=== PATIENT | female | born 1990 | race Caucasian/White ===

== ENCOUNTER 2016-08-17 11:35 | Emergency (ER) | payer MEDICAID ==
[2016-08-17] MEDS ORDERED: ONDANSETRON DISINTEGRATING 4 MG TAB PO ONE (11:42)
[2016-08-17] MEDS ORDERED: NS 1,000 ML IV ONE ×2 (11:48→12:50)
--- NOTE | 2016-08-17 12:18 | UCPHY ---
H & P Time Seen by Provider: 08/17/16 11:57 Patient Type: Established HPI/ROS: This patient presents with a chief complaint of nausea, vomiting, diarrhea, cough and fever all of which began 2 days ago. She estimates that in the last 12-18 hours he has vomited 2 or 3 times and has had 15 or more episodes of diarrhea neither which contained blood. She is had a subjective fever with chills and also abdominal pain which she localizes to the left lower abdomen. She says that her urine has been malodorous but there has been no actual dysuria , frequency or hematuria. The cough also began approximately 2 days ago and is associated with some sore throat and some congestion but no ear pain. She describes headache and generalized myalgias as well as fatigue and malaise. She denies any chest pain or shortness of breath. She has been associated with 2 children both of whom had diarrhea but with no diarrhea or fever these children both recovered within 24 hours. Her illness began shortly after theirs. REVIEW OF SYSTEMS: Constitutional: Subjective fever, malaise, fatigue, feels dehydrated Eyes: No complaints ENT: Sore throat, nasal congestion, no ear pain Respiratory: Cough, no shortness of breath Cardiac: No chest pain, Gastrointestinal: See above Genitourinary: See above Musculoskeletal: Generalized myalgias Skin: No rash Neurological: Headache, lightheadedness Smoking Status: Current every day smoker Physical Exam: GENERAL: Well-appearing, well-nourished and in no acute distress. HEAD: Atraumatic, normocephalic. EYES: Pupils equal round and reactive to light, extraocular movements intact, sclera anicteric, conjunctiva are normal. ENT: TMs normal, nares patent, oropharynx clear without exudates. Moist mucous membranes. NECK: Normal range of motion, supple without lymphadenopathy or JVD. Nontender LUNGS: Breath sounds clear to auscultation bilaterally and equal. No wheezes rales or rhonchi. HEART: Regular rate and rhythm without murmurs, rubs or gallops. ABDOMEN: No distention, bowel sounds normally active, tenderness without guarding or rebound in the left upper and left lower quadrants. EXTREMITIES: Normal range of motion, . NEUROLOGICAL: Cranial nerves II through XII grossly intact. Normal speech, normal gait. PSYCH: Normal mood, normal affect. SKIN: Warm, dry, normal turgor, no visible rashes or lesions. Back: The entire left flank is tender especially in the left CVA area. Constitutional: Initial Vital Signs Temperature (C) 36.4 C 08/17/16 11:45 Heart Rate 119 H 08/17/16 11:45 Respiratory Rate 18 08/17/16 11:45 Blood Pressure 111/76 08/17/16 11:45 O2 Sat (%) 96 08/17/16 11:45 O2 Delivery Mode Room Air Allergies/Adverse Reactions: No Known Allergies Allergy (Verified 08/17/16 11:47) Home Medications: Medication Instructions Recorded No Medications [NO HOME 1 ea [facility] [place] 10/22/11 MEDICATIONS] Ondansetron Odt [Zofran Odt] 4 mg PO Q4PRN PRN #4 tab 08/17/16 Medical Decision Making ED Course/Re-evaluation: The patient was hydrated with 2 L of normal saline. She was given 4 mg of Zofran 0 DT. The patient continued to experience nausea although she did not vomit so a 4 mg of Zofran was given IV. Nausea continued and she was then given 10 mg of Reglan intravenously. After the Reglan she developed what seems to be akathisia and consequently was given 25 mg of Benadryl intravenously and for her pain she was given 30 mg of Toradol intravenously. She also received 1 g of Rocephin intravenously and currently she is feeling much better. I have encouraged her to return tomorrow for recheck and IV antibiotics. Differential Diagnosis: I am concerned that this patient in fact has pyelonephritis based on her urinalysis her left-sided CVA tenderness in her left-sided abdominal tenderness. This very well could cause her fever and vomiting but does not account for the diarrhea but this has been less of a problem and she has had no diarrhea since she arrived here. Initially I thought this would be a simple gastroenteritis but currently think that this is unlikely. There is nothing to suggest intra-abdominal pathology such as appendicitis, gallbladder disease, PID , bowel obstruction or bowel perforation. - Data Points Laboratory Results: Laboratory Results 08/17/16 11:50 08/17/16 11:50 08/17/16 08/17/16 08/17/16 11:58 11:55 11:50 WBC 6.94 10^3/uL (3.80-9.50) RBC 5.78 H 10^6/uL (4.18-5.33) Hgb 17.6 H g/dL (12.6-16.3) Hct 51.2 H % (38.0-47.0) MCV 88.6 fL (81.5-99.8) MCH 30.4 pg (27.9-34.1) MCHC 34.4 g/dL (32.4-36.7) RDW 12.4 % (11.5-15.2) Plt Count 304 10^3/uL (150-400) MPV 9.5 fL (8.7-11.7) Neut % (Auto) 74.0 % (39.3-74.2) Lymph % (Auto) 13.5 L % (15.0-45.0) [place] % (Auto) 10.2 % (4.5-13.0) Eos % (Auto) 1.3 % (0.6-7.6) Baso % (Auto) 0.6 % (0.3-1.7) Nucleat RBC Rel Count 0.0 % (0.0-0.2) Absolute Neuts (auto) 5.13 10^3/uL (1.70-6.50) Absolute Lymphs (auto) 0.94 L 10^3/uL (1.00-3.00) Absolute Monos (auto) 0.71 10^3/uL (0.30-0.80) Absolute Eos (auto) 0.09 10^3/uL (0.03-0.40) Absolute Basos (auto) 0.04 10^3/uL (0.02-0.10) Absolute Nucleated RBC 0.00 10^3/uL (0-0.01) Immature Gran % 0.4 % (0.0-1.1) Immature Gran # 0.03 10^3/uL (0.00-0.10) Sodium 142 mEq/L (134-144) Potassium 3.7 mEq/L (3.5-5.2) Chloride 106 mEq/L (97-110) Carbon Dioxide 18 L mEq/l (22-31) Anion Gap 18 mEq/L (8-16) BUN 10 mg/dL (7-23) Creatinine 0.7 mg/dL (0.6-1.0) Estimated GFR > 60 Glucose 97 mg/dL (70-100) Calcium 9.3 mg/dL (8.5-10.4) Total Bilirubin 0.7 mg/dL (0.1-1.4) AST 20 IU/L (14-46) ALT 28 IU/L (9-52) Alkaline Phosphatase 122 IU/L (38-126) Total Protein 8.4 H g/dL (6.3-8.2) Albumin 4.4 g/dL (3.5-5.0) Urine Color YELLOW Urine Appearance CLEAR Urine pH 6.0 (5.0-7.5) Ur Specific [place] 1.025 (1.002-1.030) Urine Protein TRACE H (NEGATIVE) Urine Ketones NEGATIVE (NEGATIVE) Urine Blood 3+ H (NEGATIVE) Urine Nitrate POSITIVE H (NEGATIVE) Urine Bilirubin NEGATIVE (NEGATIVE) Urine Urobilinogen 0.2 EU (0.2-1.0) Ur Leukocyte Esterase NEGATIVE (NEGATIVE) Urine RBC 3-5 H /hpf (0-3) Urine WBC 5-10 H /hpf (0-3) Ur Epithelial Cells 2+ H /lpf (NONE-1+) Urine Bacteria 3+ H /hpf (NONE SEEN) Urine Mucus TRACE /lpf (NONE-1+) Urine Glucose NEGATIVE (NEGATIVE) Urine Test NEGATIVE Influenza Typ A,B (DFA) NEGATIVE FOR FLU (NEGATIVE) Medications Given: Discontinued Medications Sodium Chloride (Ns) 1,000 mls @ 0 mls/hr IV EDNOW ONE PRN Reason: As Directed Stop: 08/17/16 11:49 Last Admin: 08/17/16 12:00 Dose: 1,000 mls Sodium Chloride (Ns) 1,000 mls @ 0 mls/hr IV ONCE ONE PRN Reason: Wide Open Stop: 08/17/16 12:51 Last Admin: 08/17/16 12:50 Dose: 1,000 mls Ibuprofen (Motrin) 600 mg PO EDNOW ONE Stop: 08/17/16 13:40 Last Admin: 08/17/16 14:22 Dose: Not Given Metoclopramide HCl (Reglan Injection) 10 mg IVP EDNOW ONE Stop: 08/17/16 14:24 Last Admin: 08/17/16 14:37 Dose: 10 mg Ondansetron HCl (Zofran Odt) 4 mg PO EDNOW ONE Stop: 08/17/16 11:43 Last Admin: 08/17/16 11:45 Dose: 4 mg Ondansetron HCl (Zofran) 4 mg IVP EDNOW ONE Stop: 08/17/16 13:44 Last Admin: 08/17/16 13:44 Dose: 4 mg Departure - Departure Disposition: Home, Routine, Self-Care Clinical Impression: Acute pyelonephritis Condition: Good Instructions: Kidney Infection (ED) Additional Instructions: Please return tomorrow for repeat evaluation and IV antibiotics. If you begin vomiting during the night and cannot keep fluids down you should go to the emergency department at [facility]. Your urine culture will be available in 2-3 days which may or may not secure the diagnosis of kidney infection. Do not eat anything for 6-8 hours and then only if you have no nausea and have had no further vomiting. Do try to keep herself hydrated with small volumes of liquids frequently. Adult Pain & Fever Control: We recommend Acetaminophen (Tylenol) and Ibuprofen (Motrin, Advil) for pain and fever control. When fever is high or pain severe, both drugs can be used at the same time, but at different intervals. Please note the time differences. Your dose is: Acetaminophen [650]mg every 4 to 6 hours ibuprofen [600]mg every [6] hours with food OR naproxen Sodium (Aleve) [440]mg every 12 hours. Note: do not take Acetaminophen with Hydrocodone (Vicodin, Lortab) or Oxycodone (Percocet). These medications also contain Acetaminophen. No more than 3000 mg of Acetaminophen should be taken in 24 hours (for an adult) . The maximal dose of ibuprofen that it is safe in a 24-hour period is 2400 mg. You may take 400 mg every 4 hours, 600 mg every 6 hours or 800 mg every 8 hours safely. Prescriptions: Ondansetron Odt [Zofran Odt] 4 mg PO Q4PRN PRN #4 tab PRN Reason: For Nausea & Vomiting - PQRS PQRS Measurement: Not applicable
[2016-08-17 12:23] LABS: COLOR YELLOW; LEUKOCYTE ESTERASE,URINE NEGATIVE (NEGATIVE); NITRITE,URINE POSITIVE (NEGATIVE)
[2016-08-17 12:33] LABS: % IMMATURE GRANULYOCYTES 0.4 % (0.0-1.1); ABSOLUTE IMMATURE GRANULOCYTES 0.03 10^3/uL (0.00-0.10); ADD DIFF? NO; ADD MORPH? NO; ADD SCAN? NO; ATYPICAL LYMPHOCYTE FLAG 50 (0-99); FRAGMENT RBC FLAG 0 (0-99); HEMATOCRIT 51.2 % (38.0-47.0); HEMOGLOBIN 17.6 g/dL (12.6-16.3); LEFT SHIFT FLG 0 (0-99); LIPEMIA HEMOLYSIS FLAG 90 (0-99); MEAN CELL HEMOGLOBIN 30.4 pg (27.9-34.1); MEAN CELL HEMOGLOBIN CONCENTR. 34.4 g/dL (32.4-36.7); MEAN CELL VOLUME 88.6 fL (81.5-99.8); MEAN PLATELET VOLUME 9.5 fL (8.7-11.7); PLATELET CLUMPS FLAG 0 (0-99); PLATELET COUNT 304 10^3/uL (150-400); RED BLOOD CELL COUNT 5.78 10^6/uL (4.18-5.33); RED CELL DISTRIBUTION WIDTH 12.4 % (11.5-15.2)
[2016-08-17 12:39] LABS: ALANINE AMINOTRANSFERASE 28 IU/L (9-52); ALBUMIN 4.4 g/dL (3.5-5.0); ALKALINE PHOSPHATASE 122 IU/L (38-126); ANION GAP 18 mEq/L (8-16); ASPARTATE AMINOTRANSFERASE 20 IU/L (14-46); BILIRUBIN,TOTAL 0.7 mg/dL (0.1-1.4); CALCIUM 9.3 mg/dL (8.5-10.4); CARBON DIOXIDE 18 mEq/l (22-31); CHLORIDE 106 mEq/L (97-110); CREATININE 0.7 mg/dL (0.6-1.0); GLOMERULAR FILTRATION RATE > 60; GLUCOSE 97 mg/dL (70-100); POTASSIUM 3.7 mEq/L (3.5-5.2); SODIUM 142 mEq/L (134-144); TOTAL PROTEIN 8.4 g/dL (6.3-8.2)
[2016-08-17 12:45] LABS: BACTERIA 3+ /hpf (NONE SEEN); MUCUS TRACE /lpf (NONE-1+)
[2016-08-17] MEDS ORDERED: IBUPROFEN 200 MG TAB PO ONE ×2 (13:39)
[2016-08-17] MEDS ORDERED: ONDANSETRON 4 MG/2 ML VIAL ONE (13:41)
[2016-08-17] MEDS ORDERED: ONDANSETRON 4 MG/2 ML VIAL IVP ONE (13:43)
[2016-08-17] MEDS ORDERED: METOCLOPRAMIDE 10 MG/2 ML VIAL IVP ONE (14:23)
[2016-08-17 14:38] VITALS: RESP 16
[2016-08-17] MEDS ORDERED: NS 100 ML BAG (MINI-BAG) IV ONE (14:47)
[2016-08-17] MEDS ORDERED: KETOROLAC 30 MG/1 ML SDV IVP ONE (15:01)
[2016-08-17 15:52] VITALS: BP 101/52; PULSE 109; TEMP 99; O2SAT 97
== END 2016-08-17 15:35 | disposition home or self-care (01) ==
LOC: CED 11:35
DX: N10 Acute pyelonephritis (principal); F17.200 Nicotine dependence, unspecified, uncomplicated
CPT/HCPCS: 80053-PO; 81003-PO; 81015-PO; 81025-PO; 85025-PO; 87400-PO; 96361-PO; 96365-PO; 96375-PO; G0463-PO; J0696; J1200; J1885; J2405; J2765

== ENCOUNTER 2016-12-26 13:14 | Emergency (ER) | payer MEDICAID ==
[2016-12-26] MEDS ORDERED: ACETAMINOPHEN 325 MG TAB PO ONE (14:25)
[2016-12-26] MEDS ORDERED: IOPAMIDOL (ISOVUE-300) 100 ML BTL ONE (14:40)
[2016-12-26] MEDS ORDERED: HYDROCODONE/APAP 5/325 TAB PO ONE (15:00)
[2016-12-26] MEDS ORDERED: NS 1,000 ML IV ONE (15:01)
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
[2016-12-26 15:49] VITALS: BP 110/66; PULSE 97; RESP 20; TEMP 98.4; O2SAT 92
== END 2016-12-26 16:03 | disposition home or self-care (01) ==
LOC: CED 13:14
DX: S00.432A Contusion of left ear, initial encounter (principal); S00.83XA Contusion of other part of head, initial encounter; F17.200 Nicotine dependence, unspecified, uncomplicated; Y08.89XA Assault by other specified means, initial encounter
CPT/HCPCS: 70486-PO; 74177-PO; 81025-PO; Q9967

== ENCOUNTER 2017-03-29 21:23 | Emergency (ER) | payer MEDICAID ==
[2017-03-29] MEDS ORDERED: IBUPROFEN 600 MG TAB PO ONE (21:40)
[2017-03-29 21:44] VITALS: RESP 18; TEMP 97.9; O2SAT 97
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
[2017-03-29 22:35] VITALS: BP 109/66; PULSE 91
== END 2017-03-29 22:37 | disposition home or self-care (01) ==
LOC: CED 21:23
DX: S62.316A Displaced fracture of base of fifth metacarpal bone, right hand, initial encounter for closed fracture (principal); W51.XXXA Accidental striking against or bumped into by another person, initial encounter; Y92.009 Unspecified place in unspecified non-institutional (private) residence as the place of occurrence of the external cause; F17.200 Nicotine dependence, unspecified, uncomplicated
CPT/HCPCS: 73130-PO

== ENCOUNTER 2017-04-25 10:34 | Emergency (ER) | payer MEDICAID ==
[2017-04-25] MEDS ORDERED: NS 1,000 ML IV ONE (11:00)
--- NOTE | 2017-04-25 11:09 | EDPHY ---
H & P Stated Complaint: LUQ abdominal pain,blood in stool,diarrhea for 2 days Time Seen by Provider: 04/25/17 10:40 HPI/ROS: This patient complains of abdominal pain. She explains that yesterday around mid day she noticed a sharp cramp in the left upper quadrant of her belly that resolved after about 10 minutes. This morning she complains of left lower quadrant pain of moderate intensity achy in nature. She describes associated loose stools over the past 2 days and notes this morning having bright red blood per rectum associated with her loose stool. On a 2nd bowel movement the blood was slightly darker in appearance in the bowl. She has nausea as well but no vomiting. She reports anorexia this morning. She reports associated nasal congestion over 2 days, myalgias, subjective fevers and fatigue. She notes no exacerbating or alleviating factors for her symptoms. Her mother drove her here by private vehicle for further evaluation this morning. ROS: No high fevers or chills. No other constitutional symptoms besides what is mentioned in HPI HEENT: Mild sore throat for a week that is improving. No ear pain. Nasal congestion as above. No sinus pain. Neuro: No headache. No focal numbness tingling weakness 9 pulmonary: She reports a mild cough for a few days with occasional wheezing. Cardiovascular: No chest pain. No heart palpitations. No lightheadedness. GI: As per HPI. : She reports darker urine than usual and some dysuria over the past week. She has not noticed any flank pain. No vaginal discharge. Last menstrual. Was normal timing 1 month ago that she typically has irregular menses since having her IUD. Integumentary: No rash or pallor. Endocrine: No complaints Review of symptoms is otherwise negative. Source: Patient Exam Limitations: No limitations - Personal History Current Tetanus Diphtheria and Acellular Pertussis (TDAP): Yes Tetanus Vaccine Date: unsure - Medical/Surgical History Hx Asthma: No Hx Chronic Respiratory Disease: No Hx Diabetes: No Hx Cardiac Disease: No Hx Renal Disease: No Hx Cirrhosis: No Hx Alcoholism: No Hx HIV/AIDS: No Hx Splenectomy or Spleen Trauma: No Other PMH: UTI's, fx right hand - Social History Smoking Status: Current every day smoker (For cigarettes a day on average.) Alcohol Use: Occasionally Drug Use: None Additional Social History: Patient feels safe in her home situation. She is accompanied by her mother and her child. - Physical Exam Exam: General Appearance: Alert, no distress. Eyes: Pupils equal and round no pallor or injection. ENT, Mouth: Mucous membranes moist. Ears: Clear bilaterally oropharynx: Clear with no erythema exudates or dysphonia. Respiratory: There are no retractions, lungs are clear to auscultation. She has occasional cough appreciate no wheezing or rales. Cardiovascular: Regular rate and rhythm. No murmur gallop or rub Gastrointestinal: Normoactive to hypoactive bowel sounds with left lower quadrant tenderness with no guarding or rebound. Back: Left CVA tenderness-mild Rectal exam performed with female nurse (Ashlee) in the room- no external hemorrhoids or external lesions. Mild tenderness on exam with tight sphincter tone. No significant blood on the glove but there is a streak of bright red consistent with blood. This is Hemoccult positive on testing. Neurological: GCS of 15 Skin: Warm and dry, no rashes. Musculoskeletal: Neck is supple nontender. Extremities are symmetrical, full range of motion. Psychiatric: Patient with anxious affect. She maintains logical thought content DIFFERENTIAL DIAGNOSIS: After history and physical exam differential diagnosis was considered for viral gastroenteritis, bacterial or parasitic dysentery, diverticulitis, pyelonephritis, colon polyp, colon cancer, ectopic , bronchitis, URI with cough Constitutional: Initial Vital Signs Temperature (C) 36.6 C 04/25/17 10:49 Heart Rate 102 H 04/25/17 10:49 Respiratory Rate 16 04/25/17 10:49 Blood Pressure 122/94 H 04/25/17 10:49 O2 Sat (%) 94 04/25/17 10:49 O2 Delivery Mode Room Air Allergies/Adverse Reactions: No Known Allergies Allergy (Verified 04/25/17 10:48) Home Medications: Medication Instructions Recorded No Medications [NO HOME 1 ea [facility] [place] 10/22/11 MEDICATIONS] HYOSCYAMINE SULFATE [LEVSIN-SL] 0.125 - 0.25 mg SL Q6 PRN #20 04/25/17 tab.subl Ondansetron Odt [Zofran Odt] 4 - 8 mg PO Q4PRN PRN #4 tab 04/25/17 Medical Decision Making ED Course/Re-evaluation: IV, normal saline bolus Zofran IV with some relief of nausea Levsin p.o. with decrease in cramping Ativan for anxiety with relief. Patient was unable to provide a stool sample while here. Discussion: Patient with hematochezia, nausea and some mild cramping discomfort with no evidence of hemorrhagic shop, anemia orthostasis. I doubt bacterial or parasitic dysentery given lack of fever, lack of white blood cell count and lack of risk factors for this diseases. I think it is likely that the patient has a viral gastroenteritis with internal hemorrhoid verses the lower colonic polyp causing bleeding. However, I explained the patient that other diagnoses cannot be ruled out without further workup as an outpatient. I counseled patient regarding her diagnosis and the need to follow up with Gastroenterology for further evaluation including likely colonoscopy. She is given strict precautions to return emergency department should she have any significant ongoing symptoms or or recurrence of symptoms. - Data Points Laboratory Results: Laboratory Results 04/25/17 11:12 04/25/17 11:12 Medications Given: Discontinued Medications Hyoscyamine Sulfate (Levsin, Hyomax-Sl) 0.25 mg PO EDNOW ONE Stop: 04/25/17 11:48 Last Admin: 04/25/17 11:51 Dose: 0.25 mg Sodium Chloride (Ns) 1,000 mls @ 0 mls/hr IV EDNOW ONE; Wide Open PRN Reason: Protocol Stop: 04/25/17 11:01 Last Admin: 04/25/17 11:23 Dose: 1,000 mls Lorazepam (Ativan Injection) 0.5 mg IVP EDNOW ONE Stop: 04/25/17 12:24 Last Admin: 04/25/17 12:23 Dose: 0.5 mg Lorazepam (Ativan Injection) 0.5 mg IVP EDNOW ONE Stop: 04/25/17 13:21 Last Admin: 04/25/17 13:20 Dose: 0.5 mg Ondansetron HCl (Zofran) 4 mg IVP EDNOW ONE Stop: 04/25/17 11:17 Last Admin: 04/25/17 11:17 Dose: 4 mg Departure - Departure Disposition: Home, Routine, Self-Care Clinical Impression: Hematochezia, Abdominal cramping, bilateral lower quadrant Condition: Good Instructions: Rectal Bleeding (ED) Additional Instructions: Diagnosis: Rectal bleeding 2. Abdominal cramping The source of your bleeding appears to be You the lower colon or an internal hemorrhoid. Your symptoms could also be from colonic polyps or other lesions in the colon. Usually the bleeding resolved on its own within 1-2 days. Your blood count is normal today. Your electrolytes also look good. No significant findings in her urinalysis. He did not have a bladder infection. Your not . Plan: Light diet until he feel improved. Zofran for nausea vomiting if needed Levsin if needed for cramping. Drink plenty fluids Call Gastroenterology - Dr. Bellamy on to establish follow-up appointment for further evaluation. This presentation warrants follow-up colonoscopy. Return emergency department if he have significant increase in the symptoms despite the treatment plan. Referrals: [facility],. [Primary Care Provider] - As per Instructions Omar Bellamy MD [Medical Doctor] - As per Instructions Prescriptions: HYOSCYAMINE SULFATE [LEVSIN-SL] 0.125 - 0.25 mg SL Q6 PRN #20 tab.subl PRN Reason: abdominal cramping Ondansetron Odt [Zofran Odt] 4 - 8 mg PO Q4PRN PRN #4 tab PRN Reason: Vomiting
[2017-04-25 11:13] LABS: COLOR YELLOW; LEUKOCYTE ESTERASE,URINE NEGATIVE (NEGATIVE); NITRITE,URINE NEGATIVE (NEGATIVE)
[2017-04-25] MEDS ORDERED: ONDANSETRON 4 MG/2 ML VIAL ONE (11:14)
[2017-04-25] MEDS ORDERED: ONDANSETRON 4 MG/2 ML VIAL IVP ONE (11:16)
[2017-04-25 11:18] LABS: % IMMATURE GRANULYOCYTES 0.1 % (0.0-1.1); ABSOLUTE IMMATURE GRANULOCYTES 0.01 10^3/uL (0.00-0.10); ADD DIFF? NO; ADD MORPH? NO; ADD SCAN? NO; ATYPICAL LYMPHOCYTE FLAG 10 (0-99); FRAGMENT RBC FLAG 0 (0-99); HEMATOCRIT 43.8 % (38.0-47.0); HEMOGLOBIN 15.1 g/dL (12.6-16.3); LEFT SHIFT FLG 0 (0-99); LIPEMIA HEMOLYSIS FLAG 90 (0-99); MEAN CELL HEMOGLOBIN 30.1 pg (27.9-34.1); MEAN CELL HEMOGLOBIN CONCENTR. 34.5 g/dL (32.4-36.7); MEAN CELL VOLUME 87.4 fL (81.5-99.8); PLATELET CLUMPS FLAG 0 (0-99); PLATELET COUNT 335 10^3/uL (150-400); RED BLOOD CELL COUNT 5.01 10^6/uL (4.18-5.33); RED CELL DISTRIBUTION WIDTH 12.2 % (11.5-15.2)
[2017-04-25 11:26] LABS: BACTERIA 1+ /hpf (NONE SEEN); MUCUS TRACE /lpf (NONE-1+)
[2017-04-25 11:30] LABS: ANION GAP 12 mEq/L (8-16); CALCIUM 9.3 mg/dL (8.5-10.4); CARBON DIOXIDE 22 mEq/l (22-31); CHLORIDE 105 mEq/L (97-110); CREATININE 0.5 mg/dL (0.6-1.0); GLOMERULAR FILTRATION RATE > 60; GLUCOSE 74 mg/dL (70-100); POTASSIUM 4.3 mEq/L (3.5-5.2); SODIUM 139 mEq/L (134-144)
[2017-04-25] MEDS ORDERED: HYOSCYAMINE SULFATE 0.125 MG TAB PO ONE (11:47)
[2017-04-25] MEDS ORDERED: LORazepam 2 MG/ML INJ IVP ONE ×2 (12:23→13:20)
[2017-04-25 13:32] VITALS: BP 116/78; PULSE 76; RESP 18; TEMP 97.9; O2SAT 96
== END 2017-04-25 13:29 | disposition home or self-care (01) ==
LOC: CED 10:34
DX: K92.1 Melena (principal); F17.210 Nicotine dependence, cigarettes, uncomplicated; E86.9 Volume depletion, unspecified
CPT/HCPCS: 80048-PO; 81003-PO; 81015-PO; 82270-PO; 84703-PO; 85025-PO; 96374; J2060; J2405

== ENCOUNTER 2017-10-18 13:44 | Emergency (ER) | payer MEDICAID ==
[2017-10-18 13:55] VITALS: BP 141/83
[2017-10-18] MEDS ORDERED: IBUPROFEN 600 MG TAB PO ONE (14:07)
--- NOTE | 2017-10-18 14:39 | EDPHY ---
H & P Time Seen by Provider: 10/18/17 14:16 HPI/ROS: This patient complains of what feels like a spider bite her insect bite to the buttock with surrounding infection. She 1st noted onset of the symptoms as a small bump in the right buttock region 4 days prior to arrival in over the ensuing few days has developed increasing redness and pain that has been spreading in size. She notices this primarily when she sits down. She notes no other exacerbating factors to this moderate pain. She has never had this problem before and denies any other skin problems at this time. She came in by private vehicle for evaluation of her symptoms. ROS: No high fevers or chills. No other constitutional symptoms. Integumentary: No other skin lesions. No intraoral lesions no drainage from the current affected area. 5 point ROS is otherwise negative Smoking Status: Current every day smoker Physical Exam: Physical Exam Vital signs are normal. General: No acute distress Lungs: No respiratory distress. Cardiac: Brisk capillary refill is intact throughout. Pulses are 2+ and symmetric in the affected extremity. Skin: The patient has an area of tenderness and induration to the right buttock. In the center of this what appears to be a small foreign body dark in color. This is surrounded by 10-12 cm diameter of erythema with warmth to touch in tenderness. Neuro: Alert and oriented x3 with no sensorimotor deficits. Initial differential diagnosis: Foreign body/wound with infection, furuncle, abscess, cellulitis Constitutional: Initial Vital Signs Temperature (C) 36.6 C 10/18/17 13:52 Heart Rate 104 H 10/18/17 13:52 Respiratory Rate 18 10/18/17 13:52 Blood Pressure 141/83 H 10/18/17 13:52 O2 Sat (%) 95 10/18/17 13:52 O2 Delivery Mode Room Air Allergies/Adverse Reactions: No Known Allergies Allergy (Verified 10/18/17 14:00) Home Medications: Medication Instructions Recorded Doxycycline Hyclate [Vibramycin 100 mg PO BID #20 cap 10/18/17 100 MG (*)] Gabapentin [Neurontin 300 MG (*)] 10/18/17 MDM/Departure - MDM Imaging Results: Discussion: Patient with small foreign body/wound to buttock with surrounding cellulitis. Possibilities include stinger from Hymenoptera species or non insect related foreign body. I found no evidence of abscess during the procedure. There was no purulence to sent for culture. I will treat this patient with doxycycline antibiotic, warm packs, ibuprofen Tylenol. I counseled regarding wound care and regarding her diagnosis and plan. Procedures: Foreign body removal: After verbal consent is chlorhexidine scrub to the affected area and checked it with 1% plain lidocaine with 27 gauge needle -4 mL with good effect. I then used an 11. Scalpel blade to make a small incision at the area of apparent foreign body. I then removed the foreign body with pickups. Patient tolerated this well. I then probed underneath the affected area with Sagrario clamps finding only areas of induration without any fluctuant areas-no purulence was expressed. A bandage was then applied by our nurse. We counseled regarding wound care. Medications Given: Discontinued Medications Ibuprofen (Motrin) 600 mg PO EDNOW ONE Stop: 10/18/17 14:08 Last Admin: 10/18/17 14:14 Dose: 600 mg - Depart Disposition: Home, Routine, Self-Care Clinical Impression: Foreign body (FB) in soft tissue Cellulitis Qualifiers: Site of cellulitis: buttock Qualified Code(s): L03.317 - Cellulitis of buttock Insect bite Qualifiers: Encounter type: initial encounter Qualified Code(s): W57.XXXA - Bitten or stung by nonvenomous insect and other nonvenomous arthropods, initial encounter Clinical Impression: (Ruled Out): Hx of retained foreign body fully removed Condition: Good Instructions: Doxycycline (By mouth), Cellulitis (ED) Additional Instructions: Diagnosis: Insect bite cellulitis of buttock Plan: Apply warm packs to the affected area until the infection resolves Sit on inflatable donut to diminish the pressure on the area Clean daily with warm soapy water Doxycycline antibiotic as prescribed Take a probiotic and/or yogurt while on doxycycline to prevent diarrhea Ibuprofen Tylenol for pain Return for any significant worsening despite treatment plan Prescriptions: Doxycycline Hyclate [Vibramycin 100 MG (*)] 100 mg PO BID #20 cap Referrals: Genny Mitchell MD [Primary Care Provider] - As per Instructions
== END 2017-10-18 14:42 | disposition home or self-care (01) ==
LOC: CED 13:44
PROC: 0JC90ZZ Extirpation of Matter from Buttock Subcutaneous Tissue and Fascia, Open Approach (ICD-10-PCS; principal; 2017-10-18)
DX: S30.850A Superficial foreign body of lower back and pelvis, initial encounter (principal); L03.317 Cellulitis of buttock; F17.200 Nicotine dependence, unspecified, uncomplicated; W57.XXXA Bitten or stung by nonvenomous insect and other nonvenomous arthropods, initial encounter

== ENCOUNTER 2018-01-02 15:22 | Emergency (ER) | payer MEDICAID ==
[2018-01-02 15:33] VITALS: BP 109/80
[2018-01-02] MEDS ORDERED: ACETAMINOPHEN 500 MG TAB PO ONE (15:38)
--- NOTE | 2018-01-02 15:41 | EDPHY ---
H & P Time Seen by Provider: 01/02/18 15:30 HPI/ROS: CHIEF COMPLAINT: Ft injury HISTORY OF PRESENT ILLNESS: 27-year-old female presents to the emergency department reporting that a large rock tumbled off of a fire pit ring and landed on the top of her right foot. She has swelling over the dorsum of the foot along with pain. She was unable to ambulate. This occurred 8 hr ago. Patient has taken ibuprofen with some relief. No prior history of trauma to the foot. Denies other injury, denies any sprain type of a mechanism. Otherwise well prior to this event. REVIEW OF SYSTEMS: Aside from elements discussed in the HPI, a comprehensive 10-point review of systems was reviewed and is negative. PAST MEDICAL HISTORY: Patient denies. SOCIAL HISTORY: They were camping when this occurred. GENERAL APPEARANCE: Pleasant, alert, no respiratory distress. FOCUSED EXAM OF right foot: Hematoma and ecchymosis 5 cm x 3 cm over the dorsum the foot. Moderately tender to palpation. No tenderness at the ankle, malleoli, tib-fib, or fibular head. No tenderness at the calcaneus. No tenderness at the head of the 5th metatarsal. No plantar injury. Neurovascular exam: Brisk capillary refill in the toes. Normal motor exam in toes and sensation in the toes. Smoking Status: Heavy smoker Constitutional: Initial Vital Signs Heart Rate 100 01/02/18 15:28 Respiratory Rate 16 01/02/18 15:28 Blood Pressure 109/80 01/02/18 15:28 O2 Sat (%) 96 01/02/18 15:28 O2 Delivery Mode Room Air Allergies/Adverse Reactions: No Known Allergies Allergy (Verified 01/02/18 15:28) MDM/Departure - [facility] Imaging Results: Imaging Impressions Foot X-Ray 01/02/18 15:36 Impression: No acute osseous findings. Xray: Right foot x-ray was obtained. I viewed the images myself on the PACS system. My interpretation of the images is: No fracture, gravel/rocks between 3rd and 4th toes. The radiology interpretation is: Pending at this time. I discussed the results with the patient. Imaging: I viewed and interpreted images myself Medications Given: Discontinued Medications Acetaminophen (Tylenol) 1,000 mg PO EDNOW ONE Stop: 01/02/18 15:39 Last Admin: 01/02/18 15:52 Dose: 1,000 mg ED Course/Re-evaluation: Patient had taken ibuprofen prior to her presentation. She was given 1 g of Tylenol. X-rays: No fracture. Corey wrap, postop shoe, okay to weightbear as tolerated. Differential Diagnosis: Differential diagnosis for the patient's injury was considered including but not limited to contusion, abrasion, laceration, fracture, open fracture, or dislocation. - Depart Disposition: Home, Routine, Self-Care Clinical Impression: Contusion of right foot Qualifiers: Encounter type: initial encounter Qualified Code(s): S90.31XA - Contusion of right foot, initial encounter Condition: Good Instructions: Contusion in Adults (ED), Crush Injury (ED) Additional Instructions: Mainstay of therapy is rest, ice, immobilization, elevation, and nonsteroidal anti-inflammatories for pain and to decrease swelling. Apply ice for 20-30 minutes every 2-3 hours for the next 48 hours. I recommend Ibuprofen (Motrin, Advil) or Naproxen Sodium (Aleve) for pain and anti-inflammatory effects. You may take either one, but do not take both. Your dose is: Ibuprofen 600 mg every 6-8 hours with food. OR Naproxen Sodium (Aleve) 220 mg every 12 hours. Wear the postop shoe/hard-soled shoe as needed to help with discomfort when walking. Followup with the your primary care physician if you're not improving as expected. Referrals: [facility] [Other] - As per Instructions
== END 2018-01-02 16:15 | disposition home or self-care (01) ==
LOC: CED 15:22
DX: S90.31XA Contusion of right foot, initial encounter (principal); F17.200 Nicotine dependence, unspecified, uncomplicated; W20.8XXA Other cause of strike by thrown, projected or falling object, initial encounter
CPT/HCPCS: 73630-PO; L4386